=== PATIENT | female | born 1930 | race Caucasian/White ===

== ENCOUNTER 2016-06-07 10:47 | Emergency (ER) | payer BC ==
[~2016-06-07 10:47] MED LIST: ACET500CAP PO; ASAB PO; FLOVENT DISK100 MCG INH; HCTZ12.5 PO; ICAPS MV PO; K-TABS10 MEQ PO; LIPITOR10 PO; LOP25 PO; MULTIVITAMI1 PO; NITROSTAT0.4 MG SL; PREV30 PO; SENOKOTS PO; SINGULAIR1 PO; ULTRAM50 PO; VITAMIN D1000 UNI1 PO; XARELTO20 MG PO; ZOFRAN4 PO; ZOLOFT25 MG PO; ZYRTEC ALLGY10 MG PO
[2016-06-07 11:24] LABS: BASOPHILS 0.6 %; BASOPHILS ABSOLUTE 0.04 10/3/uL (0.0-0.16); EOSINOPHILS ABSOLUTE 0.21 10/3/uL (0.0-0.53); HEMATOCRIT 32.9 % (36.0-48.0); HEMOGLOBIN 11.2 g/dL (12.0-16.0); IMMATURE GRANULOCYTES 0.3 %; IMMATURE GRANULOCYTES ABSOLUTE 0.02 10/3/uL (0.0-0.11); LYMPHOCYTES 23.9 %; MANUAL DIFF NO %; MEAN CORPUSCULAR HEMOGLOB 30.2 pg (26.0-34.0); MEAN CORPUSCULAR VOLUME 88.7 fL (80-100); MEAN PLATELET VOLUME 9.4 fL (9.2-13.0); MONOCYTES 9.6 %; MONOCYTES ABSOLUTE 0.68 10/3/uL (0.21-1.20); NEUTROPHILS 62.6 %; NEUTROPHILS ABSOLUTE 4.45 10/3/uL (2.02-8.40); PLATELET COUNT 258 10/3/uL (150-400); RBC DISTRIBUTION WIDTH 13.6 % (12.0-16.0); RED CELL COUNT 3.71 10/6/uL (4.0-5.6); WHITE BLOOD CELLS 7.1 10/3/uL (4.5-10.5)
[2016-06-07 11:33] LABS: PARTIAL THROMBO TIME 35.9 SEC (22.5-37.2)
[2016-06-07 11:34] LABS: INTERNATIONAL NORMAL RATI 1.2 UNITS (-); PROTIME (NOT ORD) 15.5 SEC (12.0-14.5)
[2016-06-07 11:41] LABS: BUN (BLOOD UREA NITROGEN) 23 MG/DL (6-23); CALCIUM, SERUM 8.9 MG/DL (8.5-10.4); CHEST PAIN PROFILE TAT 0 Hrs 21 Mins; CHLORIDE, SERUM 99 MMOL/L (96-112); CO2 (CARBON DIOXIDE) 25 MMOL/L (24-34); CREATININE 1.05 MG/DL (0.55-1.02); GFR AFRICAN AMERICAN 56 ML/MIN (>=60); GFR NON AFRICAN AMERICAN 49 ML/MIN (>=60); GLUCOSE, SERUM 115 MG/DL (60-99); POTASSIUM, SERUM 3.4 MMOL/L (3.5-5.3); SODIUM, SERUM 139 MMOL/L (135-148); TROPONIN I <0.02 NG/ML (<0.05)
== END 2016-06-07 13:53 | disposition home or self-care (01) ==
LOC: ER 10:47
PROVIDERS: Nurse Practitioner
DX: I48.91 Unspecified atrial fibrillation (principal); J45.909 Unspecified asthma, uncomplicated; I25.2 Old myocardial infarction; I10 Essential (primary) hypertension; K21.9 Gastro-esophageal reflux disease without esophagitis; Z98.61 Coronary angioplasty status; Z87.891 Personal history of nicotine dependence; Z88.6 Allergy status to analgesic agent; Z79.899 Other long term (current) drug therapy
CPT/HCPCS: 71010; 80048; 83735; 84484; 85025; 85610; 85730; 93005; 96374; 96375; 96376; 99291; A9270-GY; J2405

== ENCOUNTER 2016-07-25 20:10 | Observation (INO) | payer BC ==
--- NOTE | ~2016-07-25 | HP ---
History And Physical [id number] [place]. 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 Jansen at the [facility]. CHIEF COMPLAINT: Heart racing, onset at 1700 hours, and blood pressure elevated; atrial fibrillation with RVR. HISTORY OF PRESENT ILLNESS: This is an 86-year-old white female who lives in [place] most of the year but spent a few months of the winter here in the [place] area with her son. She has been here since April of this year after she had a myocardial infarction at [facility] in [place], [place]. At that time, they performed a cath arteriogram, and she underwent a drug-eluting stent to her RCA on 04/24/2016. She does have a history of coronary artery disease, status post prior drug-eluting stent to the mid RCA and has been treated for paroxysmal atrial fibrillation several episodes in the past. She was on Cardizem and Xarelto. She has been started in cardiac rehab at the [facility] and has been there for 3 to 4 weeks. She reports that she was last in the emergency room at [facility] for heart racing and atrial fibrillation in 05/2016 and converted in the ER with medications. This is her first palpitations episodes since May, but she notes that she was in atrial fibrillation once while in cardiac rehab and Dr. Jansen was supervising and called. She reports her medications were changed from metoprolol over to Cardizem and Xarelto was decreased and Plavix added. She reports that he added magnesium as well. She denies any chest pain or dyspnea on exertion with rehab. She has rare ankle edema which is worse in summer but none currently. She reports she had chest squeezing and palpitations with atrial fibrillation but now feels well upon my seeing the patient in the CPOU at 8:45 on 07/26/2016. PAST MEDICAL HISTORY: 1. Paroxysmal atrial fibrillation. 2. Coronary artery disease status post drug-eluting stent to the RCA in 2006 and subsequently on 04/24/2016. 3. Myocardial infarction in 2006 and again in 03/2016. 4. Hypertension. 5. Hyperlipidemia. 6. Obesity. 7. Asthma. 8. Hiatal hernia. 9. Reflux. 10.Arthritis. 11.Breast cancer. 12.Colon cancer. 13.Skin cancer. 14.Depression. PAST SURGICAL HISTORY: History And Physical [address] [place]. [address] NAME: ALEX QUIJANO : 34 STATUS : DIS Cecilio PAT#: [id number] AGE: 86 ADM/REG DATE : 07/25/16 MR#: [id number] REPORT SERV DATE: 07/27/16 DICTATED BY: MARYLU EUCEDA DATE: 07/27/16 REPORT STATUS : Draft TRANSCRIBED BY: JOVITA DATE: 07/27/16 1. Appendectomy. 2. Tonsillectomy. 3. Hysterectomy. 4. Left mastectomy. 5. Partial colectomy. 6. Cataracts bilaterally, repaired. 7. Retina repaired bilaterally. 8. Right thyroidectomy. 9. Abdominal hernia repair. SOCIAL HISTORY: . She has three children including a son who lives near [place] and she lives with him during the winter months every year. She still does have an apartment in [place] and intends to return there in the shah. Remote tobacco use for 2 to 3 years, smoking approximately one pack every 3 to 4 weeks for approximately 50 years ago, very rare alcohol use, and denies illicit drug use. 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 FAMILY HISTORY: Father with myocardial infarction in his 60s, lived into his 70s; brother with myocardial infarction in his 60s. REVIEW OF SYSTEMS: As above per HPI, all other systems reviewed and negative. ALLERGIES: TYLENOL, REACTION ITCHING. HOME MEDICATIONS: List reviewed and is as follows: 1. Acetaminophen 1000 mg p.o. 4 times per day as needed for pain. 2. Plavix 75 mg p.o. every morning. 3. Diltiazem ER 120 mg p.o. twice a day, hold for heart rate less than 60. 4. Zetia 10 mg p.o. after lunch. 5. Flovent 2 puffs inhaled twice per day of 110 mcg per inhalation. 6. Hydrochlorothiazide 25 mg p.o. daily. 7. Hydrochlorothiazide 12.5 mg p.o. p.r.n. fluid retention. 8. Prevacid 15 mg p.o. every morning. 9. Claritin-D 24 hours 1 tablet p.o. every morning. 10.Magnesium oxide 400 mg p.o. after lunch. 11.Singulair 10 mg p.o. every morning. 12.Icaps one capsule p.o. after lunch. 13.Multivitamins with minerals one tablet p.o. every morning, . 14.Nitroglycerin 0.4 mg sublingual p.r.n. chest pain. 15.Potassium chloride 20 mg p.o. every morning. 16.Potassium chloride 20 mg p.o. p.r.n. fluid retention. 17.Pravastatin 10 mg p.o. after lunch. 18.Ranitidine 150 mg p.o. after lunch. 19.Xarelto 15 mg p.o. after lunch. 20.Sennosides-docusate sodium one tablet p.o. after lunch. 21.Zoloft 25 mg p.o. every morning. History And Physical [address] [address] NAME: ALEX QUIJANO : 34 STATUS : DIS Cecilio PAT#: [id number] AGE: 86 ADM/REG DATE : 07/25/16 MR#: [id number] REPORT SERV DATE: 07/27/16 DICTATED BY: MARYLU EUCEDA DATE: 07/27/16 REPORT STATUS : Draft TRANSCRIBED BY: JOVITA DATE: 07/27/16 22.Sotalol 80 mg p.o. after lunch. 23.Tramadol 50 mg p.o. three times per day as needed for moderate pain. 24.Fish oil one tablet p.o. twice per day. 25.Antifungal cream applied topically twice a day as needed for itching to the skin folds. PHYSICAL EXAMINATION: VITAL SIGNS: Oxygen saturation 97% on room air, weight 72.25 kg, temperature 98, pulse 88, respiratory rate 20. Blood pressure initially 172/79, more recent 152/87, 169/88. GENERAL: Well developed, well nourished. In no apparent distress. HEENT: Head normocephalic. No xanthelasma. Sclera clear, anicteric. Moist mucous membranes without pallor. No lymphadenopathy. No deficits noted. NECK: Trachea midline. Supple. No thyromegaly, JVD, or bruits. RESPIRATORY: Unlabored respirations. Breath sounds clear bilaterally to posterior auscultation. No wheezes, rhonchi or crackles. CARDIOVASCULAR: Regular rate and rhythm. No murmur, rub, or gallop appreciated. No chest wall tenderness to palpation. ABDOMEN: Soft, nontender, and nondistended. Active bowel sounds auscultated x4 quadrants. No organomegaly and no masses. No aortic bruit. EXTREMITIES: 1+ nonpitting edema noted to bilateral lower extremities, otherwise normal distal pulses and no calf tenderness. SKIN: Warm, dry, intact. No rash. Normal turgor. MUSCULOSKELETAL: Moves all extremities in bed without difficulty. NEURO/PSYCH: Alert and oriented x3 with no acute distress. Affect appropriate to current situation. LABORATORY DATA: BMP: Sodium 135; potassium 3.5 (repleted); creatinine 1; glucose 177, magnesium 1.8, repleted, 1.9. CBC: White blood cell count 6.6, hemoglobin 11.3, hematocrit 33.2, platelets . Troponin less than 0.02, . BNP 728.7. TSH 2.470. STUDIES: Chest x-ray: Stable cardiomegaly. Prior granulomatous exposure. Suggestion of a nodule, right lung base, consider CT scan. Telemetry: Atrial fibrillation, rate controlled. ASSESSMENT AND PLAN: 1. Paroxysmal atrial fibrillation with RVR in a patient with history of paroxysmal atrial fibrillation. We considered a CLAY cardioversion, however, the patient converted to sinus rhythm, and therefore, was discharged to home. She was seen by rounding slps for the atrial fibrillation observation unit Dr. Leblanc. He recommended that patient's slps consider increasing sotalol which is only being administered daily or starting amiodarone. He will defer this to them at the next office visit which we have requested in one week. We will continue the Xarelto at 15 mg p.o. daily as that is what the patient's cardiologists had decreased the Xarelto to when she was started on Plavix. History And Physical [address] [place]. [address] NAME: ALEX QUIJANO : 34 STATUS : DIS Cecilio PAT#: [id number] AGE: 86 ADM/REG DATE : 07/25/16 MR#: [id number] REPORT SERV DATE: 07/27/16 DICTATED BY: MARYLU EUCEDA DATE: 07/27/16 REPORT STATUS : Draft TRANSCRIBED BY: JOVITA DATE: 07/27/16 2. Coronary artery disease, status post drug-eluting stent to the RCA. We will continue the current medications. She is to discuss any adjustments to cardiac medications for history of coronary artery disease, with them she is currently on pravastatin only at 10, and she would like to discuss further with slps . We will continue Plavix. She is not on aspirin as she is on Plavix and Xarelto. She not on a beta natali other than sotalol, but again I would defer that to her slps. Finally, she is not on an NANCY inhibitor and I would also defer that to her slps to consider initiating that. 3. History of myocardial infarction. Troponins were negative. She has had no chest pain with exertion at rehab and only with symptoms with atrial fibrillation. Monitor EKG at followup appointment with Dr. Jansen which we have requested in one week. 4. Hypertension. I will continue the current medications at this time. 5. Hypokalemia, this has been repleted. 6. Lung nodule. Chest x-ray suggested a nodule at the right lung base with a consideration for CT scan. However, the patient reports that she and her primary care provider are aware of nodule. She actually says she has multiple nodules. She reports this is followed by her primary care provider. Therefore, I have asked that the fax the x-ray report to her primary care provider, and she is advised to schedule followup when she returns to [place] this summer for further monitoring of this reportedly known condition. The patient was seen in atrial fibrillation Dr. Leblanc. She was discharged to home on 07/26/2016 after converting to sinus rhythm with the following followup appointments made. . KL/MODL Marylu Euceda NP / [id number] CC: Venecia Deal, MSN, PERFORMANCE IMPROVEMENT MANAGER-BC Shashank Olson MD
[2016-07-25 18:44] LABS: BASOPHILS 0.6 %; BASOPHILS ABSOLUTE 0.04 10/3/uL (0.0-0.16); EOSINOPHILS 6.7 %; EOSINOPHILS ABSOLUTE 0.44 10/3/uL (0.0-0.53); HEMATOCRIT 33.2 % (36.0-48.0); HEMOGLOBIN 11.3 g/dL (12.0-16.0); IMMATURE GRANULOCYTES 0.2 %; IMMATURE GRANULOCYTES ABSOLUTE 0.01 10/3/uL (0.0-0.11); LYMPHOCYTES 21.2 %; LYMPHOCYTES ABSOLUTE 1.39 10/3/uL (0.67-4.30); MEAN CORPUSCULAR HEMOGLOB 29.2 pg (26.0-34.0); MEAN CORPUSCULAR VOLUME 85.8 fL (80-100); MEAN PLATELET VOLUME 9.5 fL (9.2-13.0); MONOCYTES 8.7 %; MONOCYTES ABSOLUTE 0.57 10/3/uL (0.21-1.20); NEUTROPHILS 62.6 %; NEUTROPHILS ABSOLUTE 4.12 10/3/uL (2.02-8.40); PLATELET COUNT 254 10/3/uL (150-400); RBC DISTRIBUTION WIDTH 13.9 % (12.0-16.0); RED CELL COUNT 3.87 10/6/uL (4.0-5.6); WHITE BLOOD CELLS 6.6 10/3/uL (4.5-10.5)
[2016-07-25 18:45] LABS: MANUAL DIFF NO %
[2016-07-25 18:53] LABS: INTERNATIONAL NORMAL RATI 2.5 UNITS (-)
[2016-07-25 18:54] LABS: PARTIAL THROMBO TIME 46.8 SEC (22.5-37.2)
[2016-07-25 19:00] LABS: PROTIME (NOT ORD) 26.8 SEC (12.0-14.5)
[2016-07-25 19:01] LABS: CALCIUM, SERUM 8.8 MG/DL (8.5-10.4); CHEST PAIN PROFILE TAT 0 Hrs 21 Mins; CHLORIDE, SERUM 96 MMOL/L (96-112); CO2 (CARBON DIOXIDE) 28 MMOL/L (24-34); GFR AFRICAN AMERICAN 60 ML/MIN (>=60); GFR NON AFRICAN AMERICAN 52 ML/MIN (>=60); SODIUM, SERUM 135 MMOL/L (135-148); TROPONIN I <0.02 NG/ML (<0.05)
[2016-07-25 19:02] LABS: BUN (BLOOD UREA NITROGEN) 23 MG/DL (6-23); GLUCOSE, SERUM 177 MG/DL (60-99); POTASSIUM, SERUM 3.5 MMOL/L (3.5-5.3)
[2016-07-25] MEDS ORDERED: PLAVIX PO (23:12)
[2016-07-25] MEDS ORDERED: XARELTO15 MG PO (23:13)
[2016-07-25] MEDS ORDERED: BETAPACE80 PO (23:14)
[2016-07-25] MEDS ORDERED: MAGOX4 PO (23:14)
[2016-07-25] MEDS ORDERED: HYDROCHLOROT25 MG PO (23:15)
[2016-07-25] MEDS ORDERED: CARTIA XT120 MG/24 PO (23:15)
[2016-07-25] MEDS ORDERED: MICROZIDE PO (23:16)
[2016-07-25] MEDS ORDERED: KLOR-CON M2020 MEQ PO ×2 (23:17→23:18)
[2016-07-25] MEDS ORDERED: PRAV10 PO (23:18)
[2016-07-25] MEDS ORDERED: FISH OIL PO (23:19)
[2016-07-25] MEDS ORDERED: ZETIA PO (23:20)
[2016-07-25] MEDS ORDERED: ZOLOFT25 MG PO (23:20)
[2016-07-25] MEDS ORDERED: CLARITD24H PO (23:21)
[2016-07-25] MEDS ORDERED: SINGULAIR1 PO (23:21)
[2016-07-25] MEDS ORDERED: FLOVENT110 INH (23:22)
[2016-07-25] MEDS ORDERED: PERI-COLACE1 TAB PO (23:22)
[2016-07-25] MEDS ORDERED: MULTIVIT/MIN PO (23:23)
[2016-07-25] MEDS ORDERED: PREV15 PO (23:23)
[2016-07-25] MEDS ORDERED: ICAPS MV PO (23:23)
[2016-07-25] MEDS ORDERED: ZANTAC 150 PO (23:24)
[2016-07-25] MEDS ORDERED: ACET500CAP PO (23:24)
[2016-07-25] MEDS ORDERED: NITROSTAT0.4 MG SL (23:25)
[2016-07-25] MEDS ORDERED: ULTRAM50 PO (23:25)
[2016-07-25] MEDS ORDERED: [UNRECOGNIZED DRUG - REMARK] TOP (23:27)
[2016-07-26 04:23] LABS: ALBUMIN 3.7 G/DL (3.5-5.0); ALKALINE PHOSPHATASE 84 U/L (45-117); DIRECT BILIRUBIN < 0.1 MG/DL (0.0-0.4); INDIRECT BILIRUBIN(NOT ORDER) 0.7 MG/DL (0.1-0.9); SGOT(AST) 19 U/L (5-40); SGPT(ALT) 20 U/L (5-65); TOTAL BILIRUBIN 0.8 MG/DL (0-1.2); TOTAL PROTEIN 7.3 G/DL (6.0-8.5); TROPONIN I 0.02 NG/ML (<0.05)
[2016-07-26 06:04] LABS: FREE T4 1.14 NG/DL (0.76-1.46)
== END 2016-07-26 13:09 | disposition home or self-care (01) ==
LOC: ER 20:10 → CDU1 23:17 → CDU2 07-26
PROVIDERS: Clinical Nurse Specialist; Emergency Medicine
DX: I48.0 Paroxysmal atrial fibrillation (principal); I25.10 Atherosclerotic heart disease of native coronary artery without angina pectoris; I10 Essential (primary) hypertension; E87.6 Hypokalemia; I25.2 Old myocardial infarction; Z95.5 Presence of coronary angioplasty implant and graft; E78.5 Hyperlipidemia, unspecified; E66.9 Obesity, unspecified; J45.909 Unspecified asthma, uncomplicated; F17.210 Nicotine dependence, cigarettes, uncomplicated; K21.9 Gastro-esophageal reflux disease without esophagitis; F32.9 Major depressive disorder, single episode, unspecified; M19.90 Unspecified osteoarthritis, unspecified site; E89.0 Postprocedural hypothyroidism; Z85.3 Personal history of malignant neoplasm of breast; Z85.038 Personal history of other malignant neoplasm of large intestine; Z85.828 Personal history of other malignant neoplasm of skin; Z90.49 Acquired absence of other specified parts of digestive tract; Z96.1 Presence of intraocular lens; Z90.89 Acquired absence of other organs; Z90.710 Acquired absence of both cervix and uterus; Z90.12 Acquired absence of left breast and nipple; Z98.41 Cataract extraction status, right eye; Z98.42 Cataract extraction status, left eye; Z88.5 Allergy status to narcotic agent; Z88.8 Allergy status to other drugs, medicaments and biological substances; Z98.890 Other specified postprocedural states
CPT/HCPCS: 71020; 80048; 80076; 83735; 83880; 84439; 84443; 84484; 85025; 85610; 85730; 93005; 96374; 99291; A9270-GY; G0378